=== PATIENT | male | born 1945 | race Caucasian/White ===

== ENCOUNTER 2020-02-29 18:02 | Emergency (ER) | payer MEDICARE, SELFPAY ==
[2020-02-29 18:04] VITALS: BP 133/99; PULSE 78; RESP 18; TEMP 36.6; O2SAT 97; BMI 34.9
[2020-02-29] MEDS: Cefazolin 2 GM in 0.9% Normal Saline 100 ML IV (18:26)
--- NOTE | 2020-02-29 18:30 | RAD_ITS ---
STUDY: X-RAY - LEFT HAND REASON FOR EXAM: Male, 74 years old. cutting wood with a saw and cut left thumb off above first knuckle. TECHNIQUE: 3 view(s) of the hand. COMPARISON: None. 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 The residual portion of the first distal phalanx is fractured. Associated soft tissue injury. Remote amputation of the third distal phalanx. No radiodense foreign body is seen. 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 The residual portion of the first distal phalanx is fractured. Electronically Signed: Chacho Rosario MD at 18:51 EDT Tel , Service support ,
[2020-02-29] MEDS: fentaNYL 100 MCG/2 ML Ampul 50 MCG IV (18:35)
[2020-02-29 19:07] VITALS: BP 187/74; PULSE 71; RESP 16; O2SAT 97
--- NOTE | 2020-02-29 19:08 | ED.RN ---
PT TRANSFERED TO [facility]. PTS WAS MADE AWARE
== END 2020-02-29 19:09 | disposition home or self-care (01) ==
PROVIDERS: Emergency Provider Emergency Medicine; PCP Family Medicine
DX: S68.012A Complete traumatic metacarpophalangeal amputation of left thumb, initial encounter (principal); J44.9 Chronic obstructive pulmonary disease, unspecified; I10 Essential (primary) hypertension; X58.XXXA Exposure to other specified factors, initial encounter
CPT/HCPCS: 73130; 96361; 96365; 99285; A4216

== ENCOUNTER 2023-03-14 08:03 | Day surgery (SDC) | payer MEDICARE, SELFPAY ==
[2023-03-14 08:44] VITALS: BP 137/62; PULSE 63; RESP 16; TEMP 36.5; O2SAT 100; BMI 21.4
[2023-03-14] MEDS: Lactated Ringers 1,000 ML 15 ML IV (08:50)
--- NOTE | 2023-03-14 09:03 | PCM.HP.BLA ---
History and Physical Date of Admission: 03/14/23 77 M who presents to the office today for Initial consult. GI history anemia, GERD. PMH BPH; carotid stenosis; obesity; osteoarthritis; gout; seizures; CKD III; COPD; HTN hyperlipidemia; hypokalemia; CVA; epilepsy Colonoscopy reports as approximately 2020 with one polyp removed that is reported by Elliot as normal. *BGI established 2.10.22 with referral from PCP. Weight loss of 40lbs in the last year following stroke last year. Following stroke, he was having a poor appetite that is getting better. Some difficulty with swallowing particularly with pills and sometimes with food (bread/dry foods), feels it is likely r/t change in saliva consistency (foamy) several months ago. ? Weight 112lbs. Weight at presentation 124lbs. ROS Const Constitutional: No anorexia, fatigue, fever(s), weight change or sleep problems Eyes Eyes: No change in vision ENT ENT: No abnormal hearing, difficulty swallowing, mouth lesions, tongue swelling or throat swelling Resp Respiratory: No cough or shortness of breath Cardio Cardiology: No chest pain at rest, chest pain with exertion, shortness of breath or dyspnea on exertion Gastro GI: No difficulty swallowing Genitourinary Male: No difficulty urinating or burning urination Musc Musculoskeletal: No joint pain, joint swelling, muscle weakness or decreased muscle mass Skin Skin: No hair loss in leg, yellowing of the eye, itchy eyes, rash, skin ulcer or skin swelling Neuro Neurology: No abnormal hearing, abnormal movements, confusion, unsteady gait/balance or memory loss Psych Psychiatric: No anxiety, No confusion and No memory loss Endo Endocrine: No fatigue or weight change Aller/Imm Allergy/Immunologic: No itchy eyes, throat swelling or tongue swelling Mukul/Lymp Hematologic/Lymphatic: No easy bleeding, easy bruising or enlarged lymph nodes Exam Const General: cooperative and comfortable Nutritional Appearance: average body habitus and well nourished [facility] Head: normal to inspection Ears: hearing grossly normal bilaterally Nose: external nose normal Face and sinus: normal facial exam Mouth: oral mucosae normal Throat: posterior oropharynx normal Eyes General: appearance normal, both eyes and all related structures Neck Neck: normal visual inspection Chest Chest palpation & inspection: normal inspection of the chest and normal palpation of entire chest wall Resp Effort & Inspection: normal respiratory effort Auscultation: Bilateral: Clear to Auscultation Cardio Palpation: normal PMI Rate: regular rate Rhythm: regular rhythm GI Inspection: normal to inspection Auscultation: normal bowel sounds Percussion: normal to percussion Palpation: no hepatosplenomegaly Skin General: no rashes or lesions noted Neuro General: patient alert Extrem General: normal to inspection Psych Affect: normal affect Quality Reporting Tobacco Screening ([facility] 138) Smoking Status: Never smoker Assessment and Plan Assessment and Plan (1) Abnormal weight loss: ?Status:?Chronic ?Plan: Differential diagnosis for his weight esophageal dysphagia after undergoing an acute CVA.? Also diagnosis would be? possible, malignancy.? Patient will need upper and lower endoscopy to evaluate his upper and lower GI tract.? We will also evaluate his small bowel for a protein-losing enteropathy.? We will also evaluate the small bowel for celiac disease.? He will likely need testing.? Further recommendations to follow after he has an upper endoscopy and colonoscopy I have examined the patient and the H&P has been reviewed. There are no clinical changes since date of exam.
--- NOTE | 2023-03-14 09:15 | IMM_PTH ---
PATIENT: VIDA TREVIÑO LOC: EN U#:[id number] AGE/SX: 77/M ROOM: RE03/14/[address]: Dr. Darryl Julian DO : 1945 BED: DIS: 03/14/2023 SPEC #: [id number] RECD: 03/14/23 14:05 STATUS: SHANEKA REQ #: [id number] JOYCE: 03/14/23 09:[address]: Darryl Julian DEPT: IMMUNOHISTOCHEMISTRY RECD BY: Pao Perry ENTERED: 03/14/23 14:05 SP TYPE: IMMUNO OTHR DR: Dr. Guillermo Gonzalez MD Tissues: A - Stomach, NOS Procedures: H Pylori (initial) PHYSICIAN & INSTITUTION [place] [id number] SPECIMEN INFORMATION: Tissue Source: A ? Gastric antrum Clinical Info: Abnormal weight loss Specimen Number: [id number] CPT code: 88286 METHODOLOGY: Deparaffinized sections of prefer/formalin-fixed tissue or PAP/DQ stained slides are incubated with monoclonal/polyclonal antibodies/oligonucleotide probes. Localization is made via biotin free immunoperoxidase method. Appropriate controls are performed and reacted as expected. Results on target cell population are indicated in the following table: RESULTS: ANTIBODY / CLONE RESULT Block A H Pylori (polyclonal) negative These tests were developed and their performance characteristics determined by [facility]. They may not have been cleared or approved by the U.S. Food and Drug Administration. The FDA has determined that such clearance or approval is not necessary. The above immunohistochemical/dualISH markers are ordered and reviewed by the Pathologist. INTERPRETATION: A. Gastric antrum, biopsy: Negative for Helicobacter pylori organisms. SJ:jimi 03/15/2023
--- NOTE | 2023-03-14 09:15 | COLBX_PTH ---
PATIENT: VIDA TREVIÑO LOC: EN U#:[id number] AGE/SX: 77/M ROOM: RE03/14/[address]: Dr. Darryl Julian DO : 1945 BED: DIS: 03/14/2023 SPEC #: [id number] RECD: 03/14/23 12:56 STATUS: SHANEKA REMagda #: [id number] JOYCE: 03/14/23 09:[address]: Darryl Julian DEPT: SURGICAL PATHOLOGY RECD BY: Craig Minor ENTERED: 03/14/23 13:45 SP TYPE: COLON BX OTHR DR: Dr. Guillermo Gonzalez MD Tissues: A - Gastric mucous membrane B - Duodenum, NOS Procedures: Surgery Specimen Level IV HEADER OPERATION: Colonoscopy, EGD ([facility] [place] [place]) with biopsies PRE-OP DIAGNOSIS: Abnormal weight loss TISSUE SUBMITTED: A ? Gastric antrum biopsy for H. pylori and path, B ? Duodenum biopsy MICROSCOPIC DIAGNOSIS A. Gastric antrum, biopsy: Mild gastritis. See microscopic description and comment. B. Duodenum, biopsy: Fragments of duodenal mucosa, no pathologic diagnosis. BENEDICTO:jimi 03/15/2023 COMMENT A. The results of immunohistochemistry for Helicobacter pylori will be reported separately ([id number]). MICROSCOPIC DESCRIPTION Slides are reviewed. GROSS DESCRIPTION A - Received in fixative is one container labeled with the patient's name and designated gastric antrum biopsy. The specimen consists of one irregular fragment of light negro soft tissue that measures 0.5 x 0.3 x 0.1 cm. The specimen is totally submitted in one cassette. B - Received in fixative is one container labeled with the patient's name and designated duodenum biopsy. The specimen consists of two irregular fragments of light negro soft tissue that in aggregate measure 1.0 x 0.2 x 0.1 cm. The specimen is totally submitted in one cassette. / BENEDICTO:jimi 03/14/2023 TC:3 CPT: 88590 x2
[2023-03-14 09:55] VITALS: BP 112/72; BP 137/62; PULSE 64; RESP 14; TEMP 37.2; O2SAT 99
--- NOTE | 2023-03-14 09:59 | OP.CCLET_ITS ---
03/14/2023 Guillermo Gonzalez Re : Upper GI endoscopy procedure for Elliot Mayfield Carlos This procedure was performed on Tuesday, March 14, 2023. My impressions and recommendations are as follows: Impressions : - Non-severe non-erosive esophagitis. - Small hiatal hernia. - Erythematous duodenopathy. Biopsied. Recommendations : - Discharge patient to home. - Resume previous diet. - Continue present medications. - Await pathology results. My findings are described in the full procedure note, which is enclosed. If I can be of further assistance, please feel free to contact me at . Sincerely, Darryl Julian, 03/14/2023 9:58:38 AM This report has been signed electronically.
--- NOTE | 2023-03-14 09:59 | OP.EGD_ITS ---
Patient Name: Elliot Roy Procedure Date: 03/14/2023 9:06 AM Date of : 1945 Age: 77 Procedure: Upper GI endoscopy Indications: Epigastric abdominal pain, Functional Dyspepsia Providers: Darryl Julian DO Referring MD: Darryl Julian DO Medicines: Monitored Anesthesia Care Patient Profile: This is a 77 year old male. Refer to note in patient chart for documentation of history and physical. Patient has symptoms of chronic dyspepsia and chronic odynophagia. Complications: No immediate complications. Procedure: Pre-Anesthesia Assessment: - Prior to the procedure, a History and Physical was performed, and patient medications and allergies were reviewed. The patient is competent. The risks and benefits of the procedure and the sedation options and risks were discussed with the patient. All questions were answered and informed consent was obtained. Patient identification and proposed procedure were verified by the physician in the pre-procedure area. Mental Status Examination: normal. Prophylactic Antibiotics: The patient does not require prophylactic antibiotics. Prior Anticoagulants: The patient has taken no previous anticoagulant or antiplatelet agents. After reviewing the risks and benefits, the patient was deemed in satisfactory condition to undergo the procedure. The anesthesia plan was to use monitored anesthesia care (MAC). Immediately prior to administration of medications, the patient was re-assessed for adequacy to receive sedatives. The heart rate, respiratory rate, oxygen saturations, blood pressure, adequacy of pulmonary ventilation, and response to care were monitored throughout the procedure. The physical status of the patient was re-assessed after the procedure. After obtaining informed consent, the endoscope was passed under direct vision. Throughout the procedure, the patient's blood pressure, pulse, and oxygen saturations were monitored continuously. The Colonoscope was introduced through the mouth, and advanced to the second part of duodenum. The upper GI endoscopy was accomplished without difficulty. The patient tolerated the procedure well. Scope In: 9:27:28 AM Scope Out: 9:31:00 AM Total Procedure Duration Time 0 hours 3 minutes 32 seconds Findings: Non-severe esophagitis with no bleeding was found 36 to 37 cm from the incisors. A small hiatal hernia was present. Biopsies were taken with a cold forceps for histology. Verification of patient identification for the specimen was done. Estimated blood loss was minimal. No other significant abnormalities were identified in a careful examination of the stomach. Patchy mildly erythematous mucosa without active bleeding and with no stigmata of bleeding was found in the first portion of the duodenum. Biopsies were taken with a cold forceps for histology. Verification of patient identification for the specimen was done. Estimated blood loss was minimal. Impression: - Non-severe non-erosive esophagitis. - Small hiatal hernia. - Erythematous duodenopathy. Biopsied. Recommendation: - Discharge patient to home. - Resume previous diet. - Continue present medications. - Await pathology results. Procedure Code(s): --- Professional --- 74800, Esophagogastroduodenoscopy, flexible, transoral; with biopsy, single or multiple CPT copyright 2017 [employer]. All rights reserved. The codes documented in this report are preliminary and upon marketing copywriter review may be revised to meet current compliance requirements. Darryl Julian DO 03/14/2023 9:58:38 AM This report has been signed electronically. Number of Addenda: 0 Note Initiated On: 03/14/2023 9:06 AM
[2023-03-14 10:00] VITALS: BP 116/63; BP 137/62; PULSE 66; RESP 14; O2SAT 100
--- NOTE | 2023-03-14 10:02 | OP.COLON_ITS ---
Patient Name: Elliot Roy Procedure Date: 03/14/2023 9:31 AM Date of : 1945 Age: 77 Procedure: Colonoscopy Indications: Abnormal CT of the GI tract, Obstipation, Weight loss Providers: Darryl Julian DO Referring MD: Darryl Julian DO Medicines: General Anesthesia Patient Profile: This is a 77 year old male. Refer to note in patient chart for documentation of history and physical. Patient has symptoms of chronic dyspepsia and chronic odynophagia. Last Colonoscopy: 3 years ago. Complications: No immediate complications. Procedure: Pre-Anesthesia Assessment: - Prior to the procedure, a History and Physical was performed, and patient medications and allergies were reviewed. The patient is competent. The risks and benefits of the procedure and the sedation options and risks were discussed with the patient. All questions were answered and informed consent was obtained. Patient identification and proposed procedure were verified by the physician in the pre-procedure area. Mental Status Examination: normal. Prophylactic Antibiotics: The patient does not require prophylactic antibiotics. Prior Anticoagulants: The patient has taken no previous anticoagulant or antiplatelet agents. After reviewing the risks and benefits, the patient was deemed in satisfactory condition to undergo the procedure. The anesthesia plan was to use monitored anesthesia care (MAC). Immediately prior to administration of medications, the patient was re-assessed for adequacy to receive sedatives. The heart rate, respiratory rate, oxygen saturations, blood pressure, adequacy of pulmonary ventilation, and response to care were monitored throughout the procedure. The physical status of the patient was re-assessed after the procedure. After I obtained informed consent, the scope was passed under direct vision. Throughout the procedure, the patient's blood pressure, pulse, and oxygen saturations were monitored continuously. The Colonoscope was introduced through the anus and advanced to the cecum, identified by appendiceal orifice and ileocecal valve. The colonoscopy was performed without difficulty. The patient tolerated the procedure well. The quality of the bowel preparation was good. Scope In: 9:33:00 AM Scope Withdrawal Time 0 hours 12 minutes 49 seconds Scope Out: 9:49:51 AM Total Procedure Duration Time 0 hours 16 minutes 51 seconds Findings: The perianal and digital rectal examinations were normal. A few small-mouthed diverticula were found in the recto-sigmoid colon and sigmoid colon. A moderate amount of stool was found in the sigmoid colon, at the hepatic flexure and in the ascending colon, interfering with visualization. Lavage of the area was performed using copious amounts of sterile water, resulting in clearance with good visualization. Impression: - Diverticulosis in the recto-sigmoid colon and in the sigmoid colon. - Stool in the sigmoid colon, at the hepatic flexure and in the ascending colon. - No specimens collected. Recommendation: - Discharge patient to home. - Resume previous diet. - Continue present medications. - Repeat colonoscopy in 5 years for surveillance. Procedure Code(s): --- Professional --- 65569, Colonoscopy, flexible; diagnostic, including collection of specimen(s) by brushing or washing, when performed (separate procedure) CPT copyright 2017 [employer]. All rights reserved. The codes documented in this report are preliminary and upon avionics systems integration specialist review may be revised to meet current compliance requirements. Darryl Julian DO 03/14/2023 10:02:16 AM This report has been signed electronically. Number of Addenda: 0 Note Initiated On: 03/14/2023 9:31 AM
--- NOTE | 2023-03-14 10:03 | OP.CCLET_ITS ---
03/14/2023 Guillermo Gonzalez Re : Colonoscopy procedure for Elliot Mayfield Carlos This procedure was performed on Tuesday, March 14, 2023. My impressions and recommendations are as follows: Impressions : - Diverticulosis in the recto-sigmoid colon and in the sigmoid colon. - Stool in the sigmoid colon, at the hepatic flexure and in the ascending colon. - No specimens collected. Recommendations : - Discharge patient to home. - Resume previous diet. - Continue present medications. - Repeat colonoscopy in 5 years for surveillance. My findings are described in the full procedure note, which is enclosed. If I can be of further assistance, please feel free to contact me at . Sincerely, Darryl Julian, 03/14/2023 10:02:16 AM This report has been signed electronically.
[2023-03-14 10:05] VITALS: BP 129/71; BP 137/62; PULSE 63; RESP 14; O2SAT 100
[2023-03-14 10:10] VITALS: BP 137/62; BP 145/66; PULSE 65; RESP 14; TEMP 36.9; O2SAT 100
[2023-03-14 10:20] VITALS: BP 137/62
== END 2023-03-14 10:31 | disposition home or self-care (01) ==
LOC: EN 08:08 → AC 08:48
PROVIDERS: PCP Family Medicine; Referring Provider Family Medicine; Visit Provider Internal Medicine Gastroenterology
PROC: 0DJD8ZZ Inspection of Lower Intestinal Tract, Via Natural or Artificial Opening Endoscopic (ICD-10-PCS; CPT 45378; principal; 2023-03-14 09:10)
DX: K31.89 Other diseases of stomach and duodenum (principal); N18.30 Chronic kidney disease, stage 3 unspecified; I12.9 Hypertensive chronic kidney disease with stage 1 through stage 4 chronic kidney disease, or unspecified chronic kidney disease; K21.00 Gastro-esophageal reflux disease with esophagitis, without bleeding; K29.70 Gastritis, unspecified, without bleeding; K57.30 Diverticulosis of large intestine without perforation or abscess without bleeding; R63.4 Abnormal weight loss; K44.9 Diaphragmatic hernia without obstruction or gangrene; Z86.73 Personal history of transient ischemic attack (TIA), and cerebral infarction without residual deficits; Z79.899 Other long term (current) drug therapy
CPT/HCPCS: 45378; 43239; 88305; 88342; J7120; J2405

== ENCOUNTER → 2023-05-09 | Outpatient (CLI) | payer MEDICARE, SELFPAY ==
[2023-05-09 17:45] LABS: Creatinine, Serum 1.37 mg/dL (0.70-1.30); EST Glomerular Filtration Rate 53 mL/min (>60); Est Glom Filt Rate - Afr Amer 65 mL/min (>60)
== END | disposition home or self-care (01) ==
LOC: LAB 15:53
PROVIDERS: PCP Family Medicine; Referring Provider Physician Assistant; Visit Provider Physician Assistant
DX: I65.29 Occlusion and stenosis of unspecified carotid artery (principal)
CPT/HCPCS: 36415; 82565

== ENCOUNTER → 2023-07-04 | Outpatient (CLI) | payer MEDICARE, SELFPAY ==
--- NOTE | 2023-07-04 14:13 | CT_ITS ---
STUDY: CTA HEAD AND NECK WITH CONTRAST REASON FOR EXAM: Male, 78 years old. Carotid artery stenosis, history of stroke RADIATION DOSAGE (If Supplied By Facility): CTDIvol = ( 27.59 ) mGy, DLP = ( 1467.88 ) mGycm TECHNIQUE: CT angiography was performed with a multi-detector CT scanner. Data acquisition was obtained from the skull base through the vertex following intravenous administration of IV 100mL Isovue-370. MIP images were reconstructed from the axial data set. Post-processing of the angiographic images was performed, with multiplanar reformation and 3D reconstruction. Individualized dose optimization techniques were used for this CT. COMPARISON: No relevant priors. FINDINGS: Normal bilateral petrous carotid arteries. There is calcified plaque formation of the right cavernous carotid artery, without a cross-sectional luminal stenosis. There is calcified plaque formation of the left cavernous carotid artery, without a cross-sectional luminal stenosis. Normal right A1 segments of the anterior cerebral artery. Normal left A1 segments of the anterior cerebral artery. Normal intact anterior communicating artery (ACOM). Normal bilateral A2 segments of the anterior cerebral arteries. Normal right M1 and M2 segments of the middle cerebral arteries, with a normal M1 bifurcation. Normal left M1 and M2 segments of the middle cerebral arteries, with a normal M1 bifurcation. Normal right posterior communicating artery (PCOM). 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 Normal bilateral vertebral arteries. Normal basilar artery with a normal basilar bifurcation. The visualized bilateral superior cerebellar (SCA) arteries are normal. Normal bilateral P1, P2 and visualized P3 segments of the posterior cerebral arteries. There is no demonstrated aneurysm of the [place]. Cerebral atrophy. Decreased attenuation in the white matter adjacent to the ventricle suggestive of a chronic small vessel disease. Old lacunar infarct in the right basal ganglion. AORTIC ARCH: There is atherosclerotic calcific plaque formation of the aortic arch and great vessels arising from the aortic arch, without a hemodynamically significant stenosis. There is a normal origin of the brachiocephalic, left common carotid, and left subclavian arteries. Atherosclerotic plaque formation at the origin of the right brachiocephalic artery, left common carotid artery and left subclavian artery. RIGHT CAROTID ARTERIES: There is atherosclerotic plaque formation of the common carotid artery, but without a hemodynamically significant stenosis. Normal right common carotid bulb. There is extensive atherosclerotic plaque formation of the origin of the right internal carotid artery with an estimated stenosis of greater than 70%. Normal visualized cervical portion of the right internal carotid artery. Normal origin of the right external carotid artery (ECA). LEFT CAROTID ARTERIES: There is atherosclerotic plaque formation of the common carotid artery, but without a hemodynamically significant stenosis. Normal left common carotid bulb. There is extensive atherosclerotic plaque formation of the origin of the left internal carotid artery with an estimated stenosis of greater than 70%. Normal visualized cervical portion of the left internal carotid artery. Normal origin of the left external carotid artery (ECA). VERTEBRAL ARTERIES: Normal bilateral vertebral arteries. CT/CTA Head AND Neck W/ Contrast IMPRESSION: There is evidence of high-grade stenosis at the origins of both the right and left internal carotid arteries. Electronically Signed: Junior Oropeza MD at 15:29 EDT ,
[2023-07-04 14:41] LABS: CREATININE FINGERSTICK 1.2 mg/dL (0.70-1.30)
== END | disposition home or self-care (01) ==
LOC: CT 14:12
PROVIDERS: PCP Family Medicine; Referring Provider Physician Assistant; Visit Provider Physician Assistant
DX: I65.21 Occlusion and stenosis of right carotid artery (principal); Z86.73 Personal history of transient ischemic attack (TIA), and cerebral infarction without residual deficits
CPT/HCPCS: 70496; 70498; Q9967

== ENCOUNTER → 2023-08-07 | Outpatient (CLI) | payer MEDICARE, SELFPAY ==
--- NOTE | 2023-08-07 16:10 | STRESSREP ---
Stress Test Report Pharmacologic myocardial perfusion stress test. 78-year-old lady for preoperative evaluation for right carotid endarterectomy Resting EKG demonstrates sinus rhythm with a rate of 64 bpm. Resting blood pressure is 122/62 mmHg. 0.4 mg of regadenoson was infused per usual protocol followed by rapid intravenous saline flush injection. Continuous EKG monitoring was performed. The maximum heart rate was 90 bpm which was 63% of max impacted heart rate the maximum workload was 1 metabolic equivalent. At rest there were no ST or T wave changes noted to suggest ischemia and at peak infusion nonspecific ST changes were noted which did not meet the criteria for ischemia. No clinical angina is noted. The final blood pressure was 118/70 mmHg. Myocardial perfusion protocol. 13.9 mCi of technetium 99m sestamibi was injected at rest. 0.4 mg of regadenoson was infused per usual protocol. At peak infusion 44 mCi of technetium 99m sestamibi was injected stress images were obtained stress and rest images were reconstructed and compared in the short axis vertical long and horizontal long axis. Gated images were also obtained. Perfusion SPECT analysis: Review of the stress images demonstrate normal uptake of tracer noted in all areas of the myocardium. The resting images similar demonstrated normal uptake of tracer noted in all areas of the myocardium. No areas of reversibility are noted to suggest ischemia and no previous infarct is noted. Gated SPECT analysis: The gated ejection fraction is 67%. Conclusion: Normal pharmacologic myocardial perfusion stress test. Preserved ejection fraction.
== END | disposition home or self-care (01) ==
LOC: CVS 06:23
PROVIDERS: PCP Family Medicine; Referring Provider Surgery Trauma Surgery; Visit Provider Surgery Trauma Surgery
DX: Z01.810 Encounter for preprocedural cardiovascular examination (principal)
CPT/HCPCS: 78452; 93017; A9500; A4216; J2785

== ENCOUNTER 2023-08-21 05:23 | Inpatient (IN) | payer MEDICARE, SELFPAY ==
--- NOTE | 2023-08-09 13:49 | EKG12_ITS ---
Test Reason : PREOP Blood Pressure : / mmHG Vent. Rate : 068 BPM Atrial Rate : 068 BPM P-R Int : 150 ms QRS Dur : 090 ms QT Int : 390 ms P-R-T Axes : 074 041 073 degrees QTc Int : 414 ms Normal sinus rhythm Normal ECG No previous ECGs available Confirmed by ROSANA LEHMAN, RALPH ([id number]), purchase request editor [employer]IP[employer]ANO [employer] ([id number]) on 08/15/2023 10:12:45 AM Referred By: Mauri Rai Confirmed By:RALPH WAYNE MD
[2023-08-09 14:14] LABS: Hematocrit 37.1 % (40-54); Mean Corp Hgb Conc 32.3 g/dL (32-36); Mean Corpuscular Hgb 31.2 pg (27.0-32.0); Mean Corpuscular Volume 96.4 fL (80-94); Mean Platelet Vol. 12.2 fl (6.2-12.0); Platelet Count 215 K/mm3 (150-450); RBC Distribution Width CV 13.4 % (11.6-14.6); Red Blood Count 3.85 M/mm3 (4.6-6.2); White Blood Count 5.5 K/mm3 (4.4-11.0)
[2023-08-09 14:28] LABS: Partial Thromboplast Time 42.5 Seconds (24.1-36.2)
[2023-08-09 14:46] LABS: Anion Gap 6 (5-15); BUN 31 mg/dL (7-18); BUN/Creat Ratio 19.5 RATIO (10-20); Calcium,Total 9.3 mg/dL (8.5-10.1); Chloride 111 mmol/L (98-107); Creatinine, Serum 1.59 mg/dL (0.70-1.30); EST Glomerular Filtration Rate 45 mL/min (>60); Est Glom Filt Rate - Afr Amer 54 mL/min (>60); Glucose 100 mg/dL (74-106); Potassium 4.5 mmol/L (3.5-5.1); Sodium Level 138 mmol/L (136-145)
[2023-08-21] VITALS (24 sets, daily range): BP systolic 102–149; BP diastolic 35–94; PULSE 62–80; RESP 15–21; TEMP 36.4–36.9; O2SAT 92–100; BMI 22.6
[2023-08-21] MEDS: Lactated Ringers 1,000 ML 15 ML IV (06:23)
--- NOTE | 2023-08-21 07:30 | PLAQ_PTH ---
PATIENT: VIDA TREVIÑO LOC: [facility] U#:[id number] AGE/SX: 78/M ROOM: ICU07 RE08/21/[address]: Dr. Mauri Rai MD : 1945 BED: 1 DIS: 08/22/2023 SPEC #: [id number] RECD: 08/21/23 12:07 STATUS: SHANEKA REQ #: [id number] JOYCE: 08/21/23 07:[address]: Mauri Rai DEPT: SURGICAL PATHOLOGY RECD BY: Fang Kam ENTERED: 08/21/23 12:46 SP TYPE: PLAQUE OTHR DR: MD Dr. Guillermo Freitas MD Tissues: PLAQUE Procedures: Decalcification bone/plaque Surgery Specimen Level III HEADER OPERATION: Carotid endarterectomy PRE-OP DIAGNOSIS: Stenosis of right carotid artery TISSUE SUBMITTED: Right carotid plaque MICROSCOPIC DIAGNOSIS Right carotid plaque, endarterectomy: Atherosclerotic tissue with focal calcifications (plaque). SJ:jimi 08/23/2023 GROSS DESCRIPTION Received in fixative is one container labeled with the patient's name and designated right carotid plaque. The specimen consists of three tubular pieces of negro-yellow, indurated tissue measuring 2.0 to 2.5 cm in length and 0.7 to 0.9 cm in diameter. A detached piece of negro, indurated tissue is also noted measuring 1.0 x 0.8 x 0.2 cm. The specimen cuts with gritty sensation. Secretarial Teacher sections are submitted in one cassette after decalcification. / BENEDICTO:jimi 08/21/2023 TC:5 [facility]: [id number], [id number]
--- NOTE | 2023-08-21 07:34 | PCM.HP.BLA ---
History and Physical Allergies No Known Allergies Allergy (Verified 07/19/23 14:33) Medications albuterol sulfate 90 mcg/actuation aerosol inhaler 2 puff IH Q6H PRN PRN Sob &/Or Wheezing 02/29/20 [History Confirmed 07/19/23] phenytoin sodium extended 100 mg capsule 100 mg PO BREAKFAST 02/29/20 [History Confirmed 07/19/23] amlodipine 5 mg tablet 5 mg PO DAILY 10/17/22 [History Confirmed 07/19/23] atorvastatin 20 mg tablet 20 mg PO DAILY 10/17/22 [History Confirmed 07/19/23] clopidogrel 75 mg tablet 75 mg PO DAILY 10/17/22 [History Confirmed 07/19/23] diazepam 5 mg tablet (Valium) 5 mg PO BID PRN Anxiety 10/17/22 [History Confirmed 07/19/23] famotidine 20 mg tablet 20 mg PO QHS 10/17/22 [History Confirmed 07/19/23] fluticasone 250 mcg-salmeterol 50 mcg/dose blistr powdr for inhalation (Advair Diskus) 1 inh inhalation BID 10/17/22 [History Confirmed 07/19/23] gabapentin 300 mg capsule 300 mg PO TID PRN SHINGLES PAIN 10/17/22 [History Confirmed 07/19/23] gemfibrozil 600 mg tablet (Lopid) 600 mg PO BID 10/17/22 [History Confirmed 07/19/23] lisinopril 10 mg tablet 10 mg PO DAILY 10/17/22 [History Confirmed 07/19/23] potassium chloride 20 mEq tablet,extended release(part/cryst) (Klor-Con M) 20 meq PO DAILY 10/17/22 [History Confirmed 07/19/23] tramadol 50 mg tablet 50 mg PO Q6H PRN MIGRAINES 10/17/22 [History Confirmed 07/19/23] triamterene 37.5 mg-hydrochlorothiazide 25 mg tablet 1 tab PO DAILY 10/17/22 [History Confirmed 07/19/23] Red Rice Yeast 1 tab PO.IVFORM DAILY SUPPLEMENT 03/09/23 [History Confirmed 07/19/23] acetaminophen 325 mg tablet 325 mg PO Q6H PAIN 03/09/23 [History Confirmed 07/19/23] multivitamin with minerals 1 tab PO DAILY 03/09/23 [History Confirmed 07/19/23] phenobarbital 32.4 mg tablet 32.4 mg PO BID EPILEPSY 03/09/23 [History Confirmed 07/19/23] saw palmetto 160 mg capsule 320 mg PO DAILY 03/09/23 [History Confirmed 07/19/23] mirtazapine 30 mg tablet See Rx Instructions .Route .COMPLEX #90 tabs 05/09/23 [Rx Confirmed 07/19/23] PFSH Medical History Abnormal weight loss Ambulates with cane BPH (benign prostatic hyperplasia) Bronchitis CKD (chronic kidney disease) COPD (chronic obstructive pulmonary disease) CVA (cerebral vascular accident) COX (dyspnea on exertion) Easy bruising Epilepsy Excessive bleeding Frequent falls GERD (gastroesophageal reflux disease) Gout History of diverticulitis History of stress test History of ulceration Hyperlipidemia Hypertension Hypokalemia Iron deficiency anemia Leg cramps Loose, teeth Lumbar disc disease with radiculopathy Mastoiditis of left side Migraine Non-smoker Obesity Osteoarthritis Sinusitis Stomatitis URI (upper respiratory infection) UTI (urinary tract infection) Surgical History History of amputation of left thumb History of colonoscopy Family History Mother Diabetes Cancer Osteoarthritis Thyroid disorderFather Diabetes Osteoarthritis LeukemiaOther Iron deficiency anemia Social History household members: spouse Smoking Status: Never smoker alcohol intake: never caffeine: Yes Type: coffee Number of servings: 4 HPI HPI HPI: VIDA TREVIÑO, is a 78 M who presents to the office today for follow up of right carotid stenosis. He suffered a left hemispheric stroke in 12/2021 and imaging at the time demonstrated no significant left ICA stenosis. It did show some right ICA stenosis and serial duplex imaging since that time revealed increasing velocities. He has not had any right hemispheric symptoms. Since last being seen he had a CTA and is here to discuss. He has been on ASA/plavix since his stroke. Prior to stroke was not on any antiplatelet. Denies neck surgery/XRT, has some mild arthritis but no limitation in neck ROM. ROS General General: Yes fatigue and weakness; No weight change, appetite, colon cancer or breast cancer HEENT HEENT: No difficulty swallowing, eye injury, eye surgery, swollen glands or hoarseness Endo Endocrine: No thyroid disease, diabetes mellitus, thyroid cancer, Hair loss, heat intolerance or cold intolerance Skin Skin: No rash or changing moles Musc Musculoskeletal: Yes arthritis and gout; No back problems, rheumatoid arthritis or joint pain Cardio Cardiovascular: Yes high blood pressure; No murmur, pacemaker, heart disease, atrial fibrillation, heart attack, heart stent, palpitations, shortness of breat with exertion or chest pain Psych Psychiatric: No depression, anxiety or hearing voices Resp Respiratory: Yes shortness of breath, No sleep apnea, No cough, Yes COPD, No asthma, No emphysema and No wheezing Gastro Gastrointestinal: No abdominal pain, No nausea or vomiting, No diarrhea, Yes constipation, No blood in stool, Yes acid reflux, No hemorrhoids, No ulcers, No gallbladder problem and No black,tarry stools Mukul Hematologic: Yes blood thinners, No blood disorders, No bleeding, No anemia and No blood clots Neuro Neurologic: No system reviewed and no additional complaints, except as documented, No as per HPI, No abnormal gait, No abnormal hearing, No abnormal movements, No abnormal speech, No behavioral changes, No burning sensations, No confusion, No convulsions, Yes disequilibrium, No dizziness, No localized weakness, Yes frequent falls, Yes headache(s), No lack of coordination, No loss of vision, No memory loss, Yes numbness, No other visual disturbances, No radicular pain, No restless legs, No sensory deficit, No syncope, Yes tingling, No tremor(s), Yes weakness and No other Exam Const General: cooperative, healthy appearing, comfortable, no acute distress and well developed Nutritional Appearance: well nourished Orientation: alert, awake and oriented x3 [facility] Head: normocephalic and atraumatic Ears: hearing grossly normal bilaterally Nose: external nose normal Eyes General: appearance normal, both eyes and all related structures EOM: EOM intact bilaterally Neck Neck: normal visual inspection, full ROM, no lymphadenopathy and trachea midline Thyroid: thyroid normal Lymphatic: no lymphadenopathy noted Resp Effort & Inspection: normal respiratory effort, able to speak in complete sentences, symmetric chest movement, no audible wheezes, not labored, no stridor and no use of accessory muscles Auscultation: clear to auscultation bilaterally Cardio Rate: regular rate Rhythm: regular rhythm Heart Sounds: no murmurs Bruits: carotid bruit on the right Pulses: brachial pulses present and radial pulses present Skin General: no rashes or lesions noted and no erythema Wounds: no wounds Neuro Cranial Nerves: CN's II-XI intact bilaterally and EOM intact bilaterally Speech: speech normal Gait: normal gait Motor: strength 5/5 throughout Sensory Exam: no sensory deficits noted Psych Appearance: grossly normal and well kempt Mental Status: mental status grossly normal Mood: congruent mood Speech and Movement: speech and movement normal Thought Content: normal Judgment: judgment good Coding Level of Care Code Off vis,est,level 3 Diagnoses Stenosis of right carotid artery I65.21 Assessment and Plan Assessment and Plan (1) Stenosis of right carotid artery: Status: Chronic Comment: CTA images reviewed, right ICA stenosis 72%. Left ICA stenosis 54% Plan: -right cea
[2023-08-21] MEDS: Cefazolin 2 GM in 0.9% Normal Saline (100mL Bag) 100 ML IV (07:46)
[2023-08-21] MEDS: Heparin Injection (Vial) 5,000 UNIT/ML VIAL 5000 UNIT (08:31)
--- NOTE | 2023-08-21 10:53 | PCM.OPRPT ---
Report of Operation Date of Procedure: 08/21/23 Pre-Operative Diagnosis: right carotid stenosis Post-Operative Diagnosis: same Surgery/Procedure Performed:: right carotid endarterectomy Surgeon: Mauri Rai Type of Anesthesia: General Drains: 15 Fr LAYO Estimated Blood Loss (mL): 50 Description of Procedure: HPI: Patient is a 78-year-old male with asymptomatic severe right carotid artery stenosis. He is taken for elective endarterectomy. Description of procedure: Upon obtaining informed consent and verification correct patient procedure site patient was taken to the operating was placed in general anesthesia. He was then positioned prepped and draped in usual sterile fashion and timeout was performed. Oblique incision made along the anterior border the sternocleidomastoid and Bovie electrocautery was dissect down through subcutaneous tissue to the level of platysma. The platysma was divided self-retaining retractors put in position then further dissection carried down to the sternocleidomastoid. This was then freed along its anterior border exposing the jugular vein and self-retaining retractors moved deeper in the wound. Sharp dissection was then used to dissect the internal jugular vein with the facial Vein ligated with silk ties and divided. The jugular vein was then retracted laterally exposing the carotid vessels and sharp dissection used to dissect down onto the proximal common carotid artery. This was then dissected free circumferentially with care taken to identify protect the vagus nerve. A right angle used to place a vessel loop in the proximal aspect of the vessel. We then turned our attention distally to the internal carotid artery beyond the area of palpable and visible plaque. This was then dissected free circumferentially with care taken identify and protect the vagus and hypoglossal nerves. A right angle was placed vessel distally on the internal carotid artery the patient was then heparinized for 3 minutes. While the heparin was circulating sharp dissection was used to dissect free the external carotid artery and a right angle used to place a vessel loop. Serial heparin dosing was performed based on ACT results. Vessels were then clamped first the internal followed by the common external. A longitudinal arteriotomy was created with 11 blade on the distal common carotid artery and extended with Davidson scissors onto the internal carotid artery beyond the area of plaque. A 12 Khmer [place] shunt was then placed first distally in the internal carotid artery at the backbleed and then placed proximally into the common carotid artery. The shunt was interrogated with Doppler and found patent with low resistance signal. We then performed our endarterectomy with satisfactory endpoint distally on the internal carotid artery and eversion endarterectomy of the external carotid artery. The distal endpoint was then tacked with 7-0 Prolene interrupted sutures and a bovine pericardial patch brought on the field. The patch was secured in position using a 6-0 Prolene in a running fashion. Prior to completing suture line the shunt was removed and the vessels backbled. After completing suture line the clamps were removed first from the internal carotid artery allowing it to backbleed and the bifurcation before reoccluded as origin. We then released the clamps from the common and the external carotid arteries allowing 10 heartbeats of antegrade flow into the external carotid artery before reestablishing antegrade flow into the internal carotid artery. After clamps removed satisfactory stasis was noted and the vessels were interrogated with Doppler. The internal carotid artery is patent low resistance signal. The external carotid artery had high resistant potentially even preocclusive Doppler characteristic. Is concerned that there is a dissection at the endpoint of the eversion endarterectomy which caused a vessel to occlude so sharp dissection was then used to dissect free the distal external carotid artery where it appeared to be normal and no longer had any abnormal Doppler signal. A right angle was then used to place a vessel proximal and distal on the vessel and then occluded. A longitudinal arteriotomy was created with an 11 blade extended Davidson scissors. There was a dissection in the external carotid artery so a focal endarterectomy was performed in the distal endpoint tacked with 7-0 Prolene. The vessel was then closed with 6-0 Prolene in a running fashion. Prior to completing suture line the vessels were backbled and after completing suture line clamps removed satisfactory stasis was noted. Doppler signal in the external carotid artery is now patent with normal signal. The field was then inspected for hemostasis and Patience topical hemostatic applied. A 15 Khmer channel LAYO was then placed via separate stab incision and then the incision closed with 2-0 Vicryl, 3-0 Vicryl, 4 Monocryl and Dermabond for the skin. At the inclusion of case patient was awakened by seizure moving all extremities to command with cranial nerves intact. He was then taken to the recovery room with dissipate admission to the intensive care unit for hemodynamic and neurologic monitoring.
[2023-08-21] MEDS: Bupivacaine Mpf 0.5% 30 ML VIAL (10:59)
--- NOTE | 2023-08-21 11:36 | SUR.PHASEI ---
NO SCDS APPLIED PER SAUL
--- NOTE | 2023-08-21 12:27 | SUR.PHASEI ---
REPORT CALLED TO ICU MEDICAL ASST
[2023-08-21] MEDS: 0.45% Normal Saline 1,000 ML 100 ML IV ×2 (12:48→23:02)
[2023-08-21] MEDS: traMADol 50 MG Tablet PO (14:41)
[2023-08-21 16:18] LABS: ACT Activated Clotting Time 161 sec (74-137)
[2023-08-21 16:19] LABS: ACT Activated Clotting Time 269 sec (74-137)
[2023-08-21 16:20] LABS: ACT Activated Clotting Time 233 sec (74-137)
[2023-08-21] MEDS: Acetaminophen 325 MG Tablet PO ×2 (16:59→23:01)
[2023-08-21] MEDS: Phenytoin Na 100 MG Capsule PO (17:00)
[2023-08-21] MEDS: Cefazolin 1 GM/50 ML BAG IV ×2 (17:00→23:02)
[2023-08-21] MEDS: Budesonide Respules 0.5 MG/2 ML AMPUL.NEB. INHALATION (19:14)
[2023-08-21] MEDS: Albuterol 2.5 MG/3 ML VIAL.NEB. INHALATION (19:14)
[2023-08-21] MEDS: Mirtazapine 30 MG Tablet PO (20:43)
[2023-08-21] MEDS: Famotidine 20 MG Tablet PO (20:44)
[2023-08-21] MEDS: Gemfibrozil 600 MG Tablet PO (20:44)
[2023-08-21] MEDS: Phenobarbital 32.4 MG Tablet PO (20:45)
[2023-08-22] VITALS (17 sets, daily range): BP systolic 110–152; BP diastolic 48–85; PULSE 61–80; RESP 15–20; TEMP 36.4–36.8; O2SAT 96–100; BMI 23.0
[2023-08-22] MEDS: Labetalol (Prefilled) 20 MG/4 ML 10 MG IV ×2 (01:25→05:07)
[2023-08-22 03:09] LABS: Absolute Lymphocyte Count 0.76 X10^3/uL (0.83-4.51); Absolute Neutrophil Count 6.1 X10^3/uL (2.0-7.7); Basophil# 0.04 X10^3/uL; Basophil% 0.5 % (0-1); Eosinophils% 1.3 % (0-5); Hematocrit 29.9 % (40-54); Hemoglobin 9.7 g/dL (13.0-16.5); Lymphocyte # 0.76 X10^3/ul (0.83-4.51); Lymphocyte % 9.9 % (19-41); Mean Corp Hgb Conc 32.4 g/dL (32-36); Mean Corpuscular Hgb 31.6 pg (27.0-32.0); Mean Corpuscular Volume 97.4 fL (80-94); Mean Platelet Vol. 11.8 fl (6.2-12.0); Monocyte# 0.64 X10^3/uL; Monocyte% 8.3 % (0-10); NRBC Flagged by Analyzer 0 % (0-5); Neutrophil # 6.13 X10^3/uL (2.7-7.7); Neutrophil % 79.6 % (47-70); Platelet Count 189 K/mm3 (150-450); RBC Distribution Width CV 13.2 % (11.6-14.6); RBC Distribution Width SD 47.6 fl (35.1-43.9); Red Blood Count 3.07 M/mm3 (4.6-6.2); White Blood Count 7.7 K/mm3 (4.4-11.0)
[2023-08-22] MEDS: Acetaminophen 325 MG Tablet PO ×2 (05:07→12:07)
[2023-08-22] MEDS: 0.9% Saline Lock 10 ML Syringe IV (05:08)
[2023-08-22 06:33] LABS: Bacteria 0 SEEN /hpf (None Seen); Mucous, Urine 0 SEEN /hpf (<or=2+); Red Blood Cells-Urine 0 SEEN /hpf (0-5); Squamous Epithelial Cells - UA 0 SEEN /hpf (0-5); White Blood Cells 0 SEEN /hpf (0-5)
[2023-08-22 06:35] LABS: Color, Urine Yellow (Yellow); Glucose, Dipstick Normal (Normal); Ketone-Dipstick Negative (Negative); Leukocyte Esterase-Dipstick Negative /ul (Negative); Nitrite-Dipstick Negative (Negative); Occult Blood-Urine 25 /ul (Negative); Protein-Dipstick Negative (Negative); Urine Bilirubin Dipstick Negative (Negative); Urine Clarity Clear (Clear); Urine Urobilinogen Normal (Normal); Urine pH 6.5 (5.0 - 8.0)
[2023-08-22] MEDS: Budesonide Respules 0.5 MG/2 ML AMPUL.NEB. INHALATION (06:49)
[2023-08-22] MEDS: Albuterol 2.5 MG/3 ML VIAL.NEB. INHALATION (06:49)
[2023-08-22] MEDS: Phenytoin Na 100 MG Capsule PO (08:22)
[2023-08-22] MEDS: Multivitamins,Ther W-Minerals Tablet 1 TABLET PO (08:22)
--- NOTE | 2023-08-22 09:14 | NURSING ---
Daughter of patient notified about patient being discharged this afternoon. Stated that she or her mother will be in this afternoon to visit and transport patient home after discharge.
[2023-08-22] MEDS: Atorvastatin Calcium 20 MG Tablet PO (10:08)
[2023-08-22] MEDS: Triamterene 37.5MG/Hctz 25MG Capsule 1 CAP PO (10:08)
[2023-08-22] MEDS: Gemfibrozil 600 MG Tablet PO (10:08)
[2023-08-22] MEDS: Lisinopril 10 MG Tablet PO (10:08)
[2023-08-22] MEDS: Clopidogrel Bisulfate 75 MG Tablet PO (10:08)
[2023-08-22] MEDS: amLODIPine 5 MG Tablet PO (10:08)
[2023-08-22] MEDS: Potassium Chloride Oral Tablet 20 MEQ PO (10:08)
[2023-08-22] MEDS: Aspirin E.C. 81 MG Tablet PO (10:08)
[2023-08-22] MEDS: Enoxaparin 40 MG/0.4 ML Syringe SC (10:09)
[2023-08-22] MEDS: Phenobarbital 32.4 MG Tablet PO (10:15)
--- NOTE | 2023-08-22 10:24 | CASEMGMT ---
RN?CM?CHAMPAGNE MAKER?CM?to room to meet with patient for initial transition planning/care coordination?assessment.?RN?CM?introduced self and role at [facility].? Pt voices understanding and consents to?assessment?at this time.? Pt resting in bed in no distress at this time.? Pt is A/O at this time and answers all questions appropriately, although it did take him a little time to recall/answer questions. Care providers, pharmacy, and demographics verified/updated at this time. PCP: Dr Guillermo Gonzalez Specialists:Dr Rai-vascular, Dr Julian-GI Preferred Pharmacy:[facility] Insurance: [employer] Prescription Benefit:?Yes Living Will/HPOA:?Has both LW and HCPOA, who pt states is his daughter, Madeleine PARKER: , Janell. 2 dtrs: Madeleine and Daniela. son: Benjamin Patrick Living Arrangements: Lives w/his in 2-story home w/no steps to enter. [employer]. Indep w/ADL's. manages his medications and does home mgnt tasks. Transportation:?Pt states he does not drive. or other family provide transportation. DME: ?States has the following DME:?quad cane ? Pt states no need for further DME at this time.? HHC/SNF: No hx of SNF. Has had HHC in the past. Pt denies need for HHC. Pt wishes to return home and states has no concerns with going home at time of discharge.??CM?to follow for any discharge planning/needs.? Pt voices no concerns/needs at this time.? Advised pt to ask for?CM?if any questions/concerns/needs arise.? Voices understanding. PLAN:??Home w/family support and discharge plans in place. Nicola BSN?RN?CM
--- NOTE | 2023-08-22 12:18 | PCM.PN.SRG ---
Subjective Subjective Patient has been neurologically and hemodynamically stable. Nursing does report some confusion and agitation overnight, he seems to be back to baseline this morning. He also had complained of dysuria, UA was negative. He does have difficulty with urination at baseline. Objective Data Objective Data A&Ox3, NAD RRR Nonlabored respirations, able to speak in complete sentences R neck incision site with surgical glue intact. Mild swelling, no hematoma. No redness, warmth, drainage. Vital Signs: Vital Signs Temp Pulse Resp BP Pulse Ox O2 Del Method 98.2 F 66 16 110/85 H 99 Room Air 08/22/23 08:00 08/22/23 08:00 08/22/23 08:00 08/22/23 08:00 08/22/23 08:00 08/22/23 08:00 Oxygen Delivery Method Room Air Weight: 134 lb 0.657 oz Body Mass Index (BMI) 23.0 Intake & Output: Intake and Output for Last 24 Hours 08/20/23 08/21/23 08/22/23 23:59 23:59 23:59 Intake Total 1637.25 / 1637.25 1088.33 / 1088.33 Output Total 1940 / 1940 2800 / 2800 Balance -302.75 / -302.75 -1711.67 / -1711.67 Lab / Micro Data 08/22/23 03:02 08/09/23 13:34 Labs: Laboratory Results - last 24 hr 08/21/23 08:17: Activated Clotting Time 161 H 08/21/23 09:18: Activated Clotting Time 269 H 08/21/23 09:59: Activated Clotting Time 233 H 08/22/23 03:02: WBC 7.7, RBC 3.07 L, Hgb 9.7 L, Hct 29.9 L, MCV 97.4 H, MCH 31.6, MCHC 32.4, RDW Std Deviation 47.6 H, RDW Coeff of Bravo 13.2, Plt Count 189, MPV 11.8, Immature Gran % (Auto) 0.400, Neut % (Auto) 79.6 H, Lymph % (Auto) 9.9 L, [place] % (Auto) 8.3, Eos % (Auto) 1.3, Baso % (Auto) 0.5, Absolute Neuts (auto) 6.1, Absolute Lymphs (auto) 0.76 L, Nucleated RBC % 0 08/22/23 06:20: Urine Color Yellow, Urine Clarity Clear, Urine pH 6.5, Ur Specific [place] 1.010, Urine Protein Negative, Urine Glucose (UA) Normal, Urine Ketones Negative, Urine Occult Blood 25 H, Urine Nitrite Negative, Urine Bilirubin Negative, Urine Urobilinogen Normal, Ur Leukocyte Esterase Negative, Urine RBC 0 SEEN, Urine WBC 0 SEEN, Ur Squamous Epith Cells 0 SEEN, Urine Bacteria 0 SEEN, Urine Mucus 0 SEEN Assessment & Plan Assessment/Plan (1) Stenosis of right carotid artery: PLAN: He is s/p R CEA on 08/21/27. His BPs have been overall stable. He has remained neurologically stable. He is tolerating diet. LAYO drain was removed without issue. Incision site appears satisfactory. Anticipate discharge this afternoon.
--- NOTE | 2023-08-22 14:19 | DS.PCM_ITS ---
Providers Date of Admission: 08/21/23 Primary Care Physician: Dr. Guillermo Gonzalez MD Reason For Visit: Carotid Endarterectomy Diagnosis Discharge Diagnosis (1) Stenosis of right carotid artery: Status: Chronic Code(s): I65.21 - Occlusion and stenosis of right carotid artery Plan: He is s/p R CEA on 08/21/27. His BPs have been overall stable. He has remained neurologically stable. He is tolerating diet. LAYO drain was removed without issue. Incision site appears satisfactory. Anticipate discharge this afternoon. Medications at Discharge Home Medications albuterol sulfate 90 mcg/actuation aerosol inhaler 2 puff IH Q6H PRN PRN Sob &/Or Wheezing 02/29/20 phenytoin sodium extended 100 mg capsule 100 mg PO BID SEIZURES 02/29/20 amlodipine 5 mg tablet 5 mg PO DAILY HTN 10/17/22 atorvastatin 20 mg tablet 20 mg PO DAILY HYPERLIPIDEMIA 10/17/22 clopidogrel 75 mg tablet 75 mg PO DAILY BLOOD THINNER 10/17/22 diazepam 5 mg tablet (Valium) 5 mg PO BID PRN Anxiety 10/17/22 famotidine 20 mg tablet 20 mg PO QHS GERD 10/17/22 fluticasone 250 mcg-salmeterol 50 mcg/dose blistr powdr for inhalation (Advair Diskus) 1 inh inhalation BID COPD 10/17/22 gabapentin 300 mg capsule 300 mg PO TID PRN SHINGLES PAIN 10/17/22 gemfibrozil 600 mg tablet (Lopid) 600 mg PO BID SHINGLES 10/17/22 lisinopril 10 mg tablet 10 mg PO DAILY HTN 10/17/22 potassium chloride 20 mEq tablet,extended release(part/cryst) (Klor-Con M) 20 meq PO DAILY HYPOKALEMIA 10/17/22 tramadol 50 mg tablet 50 mg PO Q6H PRN MIGRAINES 10/17/22 triamterene 37.5 mg-hydrochlorothiazide 25 mg tablet 1 tab PO DAILY HTN 10/17/22 Red Rice Yeast 1 tab PO.IVFORM DAILY SUPPLEMENT 03/09/23 acetaminophen 325 mg tablet 325 mg PO Q6H PAIN 03/09/23 multivitamin with minerals 1 tab PO DAILY SUPPLEMENT 03/09/23 phenobarbital 32.4 mg tablet 32.4 mg PO BID EPILEPSY 03/09/23 saw palmetto 160 mg capsule 320 mg PO DAILY PROSTATE 03/09/23 mirtazapine 30 mg tablet 30 mg PO QHS SLEEP 08/08/23 aspirin 81 mg tablet,delayed release (Adult Low Dose Aspirin) 81 mg PO DAILY blood thinner 08/21/23 Hospital Course Summary of Care Provided Hospital Course: Patient underwent right carotid endarterectomy on 08/21/23. Postoperatively, he was routinely admitted to the ICU for hemodynamic and neurologic monitoring. LAYO drain had minimal output and was removed without issue on POD#1. He has remained hemodynamically and neurologically stable. He has been able to urinate with some hesitancy/difficulty, but this is at baseline for him. He did complain of some burning with urination, UA was negative so this is secondary to cheng catheter placement for surgery. His pain is well controlled, he is tolerating normal diet, and he is ambulating without difficulty. He is medically stable for discharge home with his family and with outpatient follow-up in our office as scheduled on 09/06/2023. Physical Exam Const oriented x3 and no apparent distress Resp normal respiratory effort Cardio regular rate and regular rhythm Extremity normal to inspection and no clubbing, cyanosis or edema Skin no rashes or lesions noted Trauma: no lacerations or abrasions Wounds: wounds noted Wound Narrative: R neck surgical incision site has surgical glue intact. No dehiscence, erythema, focal swelling, drainage. Weight / BMI Weight Weight: 134 lb 0.657 oz Body Mass Index (BMI) 23.0 ABG / Lab / Microbiology Data 08/22/23 03:02 08/09/23 13:34 Laboratory: Laboratory Results - last 24 hr 08/21/23 08:17: Activated Clotting Time 161 H 08/21/23 09:18: Activated Clotting Time 269 H 08/21/23 09:59: Activated Clotting Time 233 H 08/22/23 03:02: WBC 7.7, RBC 3.07 L, Hgb 9.7 L, Hct 29.9 L, MCV 97.4 H, MCH 31.6, MCHC 32.4, RDW Std Deviation 47.6 H, RDW Coeff of Bravo 13.2, Plt Count 189, MPV 11.8, Immature Gran % (Auto) 0.400, Neut % (Auto) 79.6 H, Lymph % (Auto) 9.9 L, Grand % (Auto) 8.3, Eos % (Auto) 1.3, Baso % (Auto) 0.5, Absolute Neuts (auto) 6.1, Absolute Lymphs (auto) 0.76 L, Nucleated RBC % 0 08/22/23 06:20: Urine Color Yellow, Urine Clarity Clear, Urine pH 6.5, Ur Specific [place] 1.010, Urine Protein Negative, Urine Glucose (UA) Normal, Urine Ketones Negative, Urine Occult Blood 25 H, Urine Nitrite Negative, Urine Bilirub in Negative, Urine Urobilinogen Normal, Ur Leukocyte Esterase Negative, Urine RBC 0 SEEN, Urine WBC 0 SEEN, Ur Squamous Epith Cells 0 SEEN, Urine Bacteria 0 SEEN, Urine Mucus 0 SEEN D/C Instructions Discharge Diet: No restrictions May shower in (days): 1 Weight Bearing Status: Weight bearing as tolerated Lifting Restricted to (Lbs): 20 Lifting Restrictions: Do not lift greater than 20 pounds for 3 weeks Call your doctor if your incision/area has: Sudden Increased Bleeding, Increased Pain/ Swelling and Increased Redness Call your doctor if you observe: Fever of 101 or Higher and Uncontrolled pain Additional Instructions: There is a small bandage over the spot from which the surgical drain was removed. You may remove this bandage tomorrow. If there is still some drainage from this area, then you may cover with a new bandaid. If there is no drainage, then you may leave this open to air. The surgical incision is covered with surgical glue. This glue will continue to protect the incision. The glue will peel/flake off on its own over the next few weeks. Do not pick at the glue. You may shower tomorrow. It is okay for soap and water to rinse over the incision, pat to dry. Do not submerge the incision in water such as with a bathe, swimming, etc for 3 weeks. Do not lift greater than 20 pounds for [address] you are able to move your head/neck well enough to check your blindspots, patients typically wait 3-[address] Continue to take your Plavix and Aspirin daily as prescribed. Follow-up in the vascular surgery office as scheduled on 09/06/2023. Please call the office if you need to change your appointment or if you have any questions/concerns prior to your appointment. Meaningful Use Info Meaningful Use Diagnoses (Choose all that apply): None applicable Discharge Plan Admission Admit Date/Time: 08/21/23 05:23 Primary Reason for Your Visit: Right carotid endarterectomy Attending Provider: Mauri Rai Primary Care Provider: Guillermo Gonzalez Consulting Providers: Paulie Fraser Discharge Orders/Prescriptions Prescriptions: Continued famotidine 20 mg tablet 20 mg PO QHS potassium chloride [Klor-Con M20] 20 mEq tablet,ER particles/crystals 20 meq PO DAILY atorvastatin 20 mg tablet 20 mg PO DAILY amlodipine 5 mg tablet 5 mg PO DAILY lisinopril 10 mg tablet 10 mg PO DAILY tramadol 50 mg tablet 50 mg PO Q6H PRN (Reason: MIGRAINES) clopidogrel 75 mg tablet 75 mg PO DAILY fluticasone propion-salmeterol [Advair Diskus] 250-50 mcg/dose blister with device 1 inh inhalation BID triamterene-hydrochlorothiazid 37.5-25 mg tablet 1 tab PO DAILY diazepam [Valium] 5 mg tablet 5 mg PO BID PRN (Reason: Anxiety) gabapentin 300 mg capsule 300 mg PO TID PRN (Reason: SHINGLES PAIN) gemfibrozil [Lopid] 600 mg tablet 600 mg PO BID phenytoin sodium extended 100 MG capsule 100 mg PO BID albuterol sulfate 90 mcg/actuation HFA aerosol inhaler 2 puff IH Q6H PRN PRN (Reason: Sob &/Or Wheezing) Patient Comments: INHALE 2 PUFFS BY MOUTH EVERY 6 HOURS NEEDED acetaminophen 325 mg Tablet 325 mg PO Q6H saw palmetto 160 mg Capsule 320 mg PO DAILY Rx Instructions: give with food (meal/snack) multivitamin with minerals Tablet 1 tab PO DAILY phenobarbital 32.4 mg tablet 32.4 mg PO BID Red Rice Yeast 1 tab PO.IVFORM DAILY mirtazapine 30 mg tablet 30 mg PO QHS aspirin [Adult Low Dose Aspirin] 81 mg tablet,delayed release (DR/EC) 81 mg PO DAILY Other Ambulatory Orders: 12 Lead EKG (Routine) Timeframe: [id number] Location: None Selected Ordered By: Dr. Paulie Fraser Referrals / Follow Up: Guillermo Gonzalez MD [Primary Care Provider] - Disposition Disposition (needs filled in before D/C Order can be placed): Home, Self Care
== END 2023-08-22 16:30 | disposition home or self-care (01) | DRG 39 ==
LOC: ACINP 05:32 → ICU 10:58
PROVIDERS: Anesthesiology; Admitting Provider Surgery Trauma Surgery; PCP Family Medicine; Referring Provider Surgery Trauma Surgery; Visit Provider Surgery Trauma Surgery
PROC: 03CM0ZZ Extirpation of Matter from Right External Carotid Artery, Open Approach (ICD-10-PCS; CPT 35301; principal; 2023-08-21 07:10)
DX: I65.21 Occlusion and stenosis of right carotid artery (principal); I10 Essential (primary) hypertension; R30.0 Dysuria; Z79.02 Long term (current) use of antithrombotics/antiplatelets; Z79.82 Long term (current) use of aspirin; Z79.899 Other long term (current) drug therapy; Z86.73 Personal history of transient ischemic attack (TIA), and cerebral infarction without residual deficits
CPT/HCPCS: 36415; 80048; 81001; 85025; 85027; 85347; 85730; 86850; 86900; 86901; 88304; 88311; 93005; 94640; 94668; 97162; 97802; 99252; A4648; J7030; J7040; J7120; A4216; G0463; J2405